=== PATIENT | male | born 1975 | race African-American/Black ===

== ENCOUNTER 2018-07-13 17:58 | Observation (INO) ==
[2018-07-13] MEDS ORDERED: diazePAM 5 MG Tablet PO ONE (22:39)
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
[2018-07-13 23:18] LABS: Baso % (Auto) 0.6 % (0.0-2.0); Eos % (Auto) 0.5 % (0.0-4.0); Hematocrit 42.1 % (39.0-51.0); Hemoglobin 14.6 gm/dL (13.0-17.0); Lymph # (Auto) 2.7 th/mm3 (1.0-4.8); Lymph % (Auto) 31.9 % (9.0-44.0); Mean Corpuscular HGB Conc 34.6 % (32.0-36.0); Mean Corpuscular Hemoglobin 31.7 pg (27.0-34.0); Mean Corpuscular Volume 91.7 fL (80.0-100.0); Mean Platelet Volume 10.5 fL (7.0-11.0); Mono % (Auto) 11.3 % (0.0-8.0); Neut # (Auto) 4.7 th/mm3 (1.8-7.7); Neut % (Auto) 55.7 % (16.0-70.0); Platelet Count 145 th/mm3 (150-450); Red Cell Distribution Width 13.5 % (11.6-17.2); White Blood Count 8.5 th/mm3 (4.0-11.0)
[2018-07-13 23:27] LABS: Activated Partial Thrombo Time 31.9 sec (23.4-31.7); Prothrombin Time 10.5 sec (9.8-11.6)
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
[2018-07-13] MEDS ORDERED: Aspirin 325 MG Tablet PO ONE (23:34)
[2018-07-13 23:38] LABS: Alanine Aminotransferase 18 U/L (12-78); Albumin 4.2 g/dL (3.4-5.0); Anion Gap 11 meq/L (5-15); Aspartate Aminotransferase 16 U/L (15-37); Blood Urea Nitrogen 16 mg/dL (7-18); Calcium 9.1 mg/dL (8.5-10.1); Carbon Dioxide 23.3 meq/L (21.0-32.0); Chloride 106 meq/L (98-107); Glomerular Filtration Rate 81 mL/min (>89); Glucose,Random 86 mg/dL (74-106); Potassium 3.2 meq/L (3.5-5.1); Sodium 140 meq/L (136-145)
[2018-07-13 23:42] LABS: Alkaline Phosphatase 55 U/L (45-117); Total Protein 8.3 g/dL (6.4-8.2)
[2018-07-14 02:48] LABS: Creatine Kinase 160 U/L (39-308)
[2018-07-14 05:18] LABS: Creatine Kinase 116 U/L (39-308)
[2018-07-14 08:22] VITALS: BP 187/103; PULSE 58; RESP 16; TEMP 97.7; O2SAT 93
--- NOTE | 2018-07-14 11:39 | ECG ---
Date Performed: 07/14/2018 Time Performed: 05:06:04 PTAGE: 42 years EKG: SINUS BRADYCARDIA VOLTAGE CRITERIA FOR LVH NONSPECIFIC T-WAVE ABNORMALITY ABNORMAL ECG No s ignificant change PREVIOUS TRACING : 07/14/2018 02.04 DOCTOR: José Miguel William Interpretating Date/Time 07/14/2018 11:37:46
--- NOTE | 2018-07-14 11:40 | ECG ---
Date Performed: 07/14/2018 Time Performed: 02:04:10 PTAGE: 42 years EKG: SINUS BRADYCARDIA POSSIBLE LEFT ATRIAL ENLARGEMENT POSSIBLE LEFT VENTRICULAR HYPERTROPHY NO NSPECIFIC T-WAVE ABNORMALITY ABNORMAL ECG No significant change PREVIOUS TRACING : 07/13/2018 22.57 DOCTOR: José Miguel William Interpretating Date/Time 07/14/2018 11:38:06
--- NOTE | 2018-07-14 11:40 | ECG ---
Date Performed: 07/13/2018 Time Performed: 22:57:59 PTAGE: 42 years EKG: SINUS BRADYCARDIA VOLTAGE CRITERIA FOR LVH ABNORMAL ECG NO PREVIOUS TRACING DOCTOR: José Miguel William Interpretating Date/Time 07/14/2018 11:39:13
== END 2018-07-14 09:37 | disposition left against medical advice (07) ==
LOC: NEDA 17:58 → NEPD 17:58 → NEPHCDU 07-14 02:05
PROVIDERS: ADMIT Internal Medicine Interventional Cardiology; ATTEND Internal Medicine Interventional Cardiology
DX: Q25.46 Tortuous aortic arch; I11.9 Hypertensive heart disease without heart failure; R07.9 Chest pain, unspecified; Z53.21 Procedure and treatment not carried out due to patient leaving prior to being seen by health care provider; R06.4 Hyperventilation